=== PATIENT | female | born 2000 | race Two or more races ===

== ENCOUNTER 2024-08-20 05:03 | Observation (INO) | payer BC, OTHER ==
[~2024-08-20] VITALS: Ht 162.6 cm; Wt 91.2 kg
[2024-08-20] MEDS ORDERED: LACTATED RINGER'S 1,000 ML IV ONE (06:00)
[2024-08-20] MEDS ORDERED: LACTATED RINGER'S 1,000 ML IV SCH (06:00)
[2024-08-20] MEDS: TERBUTALINE SULFATE 1 MG/ML 1ML VIAL SC SCH (06:18)
--- NOTE | 2024-08-20 06:46 | DVHDS2 ---
Physician Discharge Progress N Final Diagnosis: IUP at 35w 3d GDMA1 Contraction - Resolved Other Interventions Other Interventions S: 23yo G1,0000 with EDC of 09/21/2024, OMAR 35w 3d presents to the Place with report of possible vaginal bleeding - had pink vaginal discharge earlier this morning at about 4:00am. Now only notices it on tissue paper when she cleans her genital. She reports normal movements, no leakage of fluids, KUHN, vision changes or epigastric pain. No urinary symptoms. Irregular cramps that started 11am on yesterday; only 1-2/hour Receiving care at [facility] complicated by GDMA1 PMH is unremarkable. Reports no past surgery. She reports no toxic habit or IPV. She reports her siblings had late deliveries 34-36 weeks ROS: Neurological: Unremarkable except as noted in Presenting problem/ CC above Respiratory: reports no respiratory symptom, no SOB Cardiovascular: no palpitation, chest pain or easy fatigue : No urinary symptom O: PE: A&O x3, NAD, well groomed. pleasant. Appropriate and normal mood and affect Afebrile, VSS Respiration unlabored Heart and lungs sounds: normal Abdomen: Gravid, non-tender to palpation. Fundal Ht 36cm. Cephalic presentation Extremities: No edema POC blood Glucose:96mg/dL VE: close/40%/-2/posterior cervix, medium in consistency UA: Neg for nitrites and leukocyte, 1+ proteinuria EFM: FHR baseline 130bpm with moderate variability and accelerations, no deceleration Contractions every 3-5mins x 100-120secs A: IUP at 35w 3d Category I FHR tracing Contractions P: IV hydration Tocolysis with Terbutaline Celestone GBS culture obtained Re-Assessment: 07:36am FHR baseline 140bpm with moderate variability and accelerations, no deceleration No Contraction A: IUP at 35w 3d GDMA1 Category I FHR Tracing Contraction; same resolved P Discharge home Keep appointment with OB provider as scheduled on 08/22/24 Return for 2nd dose of Celestone in 12-24 hours Educated on need for adequate hydration - advised to increased water intake 3rd trimester emergency S&S FMC, , & pre-eclampsia precautions reviewed with pt; advised to seek health care if any Condition on Discharge: Stable Disposition: Home Discharge Instructions: Diet: Regular Activity: No Restrictions, As Tolerated Activity comment: Balance activities with rest periods Medications: None Follow Up Care: Discharge Statement: "Patient was advised to return to the ER or call 911 if any headaches, dizziness, shortness of breath, chest pain, abdominal pain, bleeding, fevers, or worsening of medical condition. Patient was counseled about treatment plan, medications, possible side effects, patientverbalized understanding. All questions were answered to the best of my ability. This discharge took greater then 30 minutes in planning, reviewing documentation, counseling the patient, and discussing with other team members." ANA MARIA MURILLO Lexi Aug 20, 2024 06:46
[2024-08-20] MEDS: BETAMETHASONE ACET (30mg/5ml) 5ml Vial 6mg/ml IM ONE (06:57)
== END 2024-08-20 08:05 | disposition home or self-care (01) ==
LOC: LDRP 05:03
PROVIDERS: ADMIT Obstetrics & Gynecology; ATTEND Obstetrics & Gynecology
DX: O24.419 Gestational diabetes mellitus in pregnancy, unspecified control (principal); O26.893 Other specified pregnancy related conditions, third trimester; N89.8 Other specified noninflammatory disorders of vagina; Z3A.35 35 weeks gestation of pregnancy; Z79.899 Other long term (current) drug therapy
CPT/HCPCS: 59025; 81002; 87070; 96360; 96361; 96372; G0378; J0702; J3105; 82962

== ENCOUNTER 2024-08-21 06:45 | Observation (INO) | payer BC ==
[2024-08-21] MEDS: BETAMETHASONE ACET (30mg/5ml) 5ml Vial 6mg/ml IM ONE (07:19)
--- NOTE | 2024-08-21 07:40 | DVHDS2 ---
Physician Discharge Progress N Final Diagnosis: IUP 35 wk, Threatened labor Operations or Procedures: Operations or Procedures NST 2nd Celestone injection Condition on Discharge: Stable Disposition: Home Discharge Instructions: Diet: Regular Activity: Light activity Follow Up/Referral: Pelvic rest until delivered Medications: N/A Follow Up Care: Discharge Statement: "Patient was advised to return to the ER or call 911 if any headaches, dizziness, shortness of breath, chest pain, abdominal pain, bleeding, fevers, or worsening of medical condition. Patient was counseled about treatment plan, medications, possible side effects, patientverbalized understanding. All questions were answered to the best of my ability. This discharge took greater then 30 minutes in planning, reviewing documentation, counseling the patient, and discussing with other team members." ALEX FRANCO DO Aug 21, 2024 07:40
== END 2024-08-21 08:02 | disposition home or self-care (01) ==
LOC: LDRP 06:52
PROVIDERS: ADMIT Obstetrics & Gynecology; ATTEND Obstetrics & Gynecology
DX: O47.03 False labor before 37 completed weeks of gestation, third trimester (principal); O24.419 Gestational diabetes mellitus in pregnancy, unspecified control; O26.893 Other specified pregnancy related conditions, third trimester; N89.8 Other specified noninflammatory disorders of vagina; Z79.899 Other long term (current) drug therapy; Z98.890 Other specified postprocedural states; Z3A.35 35 weeks gestation of pregnancy
CPT/HCPCS: 59025; 81002; 94760; 96372; G0378; 82962

== ENCOUNTER → 2024-08-23 | Outpatient (CLI) | payer BC ==
[~2024-08-23] MED LIST: PREN-96 PO
[2024-08-23 09:19] LABS: Basophils # (auto) 0 10 ^3/uL (0-0.2); Basophils % (auto) 0.2 % (0.0-2.0); Eosinophils # (auto) 0.1 10 ^3/uL (0-0.8); Eosinophils % (auto) 1.5 % (0.0-7.0); Hematocrit 36.5 % (36.0-46.0); Hemoglobin 12.1 g/dL (12.2-16.2); Lymphocytes # (auto) 2.1 10 ^3/uL (0.4-5.4); Lymphocytes % (auto) 23.3 % (10.0-50.0); Mean Corpuscular Hemoglobin 28.1 pg (28.0-32.0); Mean Corpuscular Hgb Conc. 33.2 g/dL (32.0-36.0); Mean Corpuscular Volume 84.5 fL (80.0-100.0); Monocytes # (auto) 0.7 10 ^3/uL (0-1.3); Monocytes % (auto) 7.7 % (0.0-12.0); Neutrophils # (auto) 6.2 10 ^3/uL (1.6-8.6); Neutrophils % (auto) 67.3 % (37.0-80.0); Platelet Count (auto) 263 10^3/uL (140-450); Red Blood Cells 4.32 10^6/uL (4.0-5.20); Red Cell Distribution Width 13.5 % (11.8-14.3); White Blood Cell 9.2 10^3/uL (4.4-10.8)
[2024-08-24 05:07] LABS: RPR Non Reactive (Non Reactive)
[2024-08-24 21:06] LABS: Chlamydia Trachomatis, NAA Negative (Negative); Neisseria gonorrhoeae, NAA Negative (Negative)
== END | disposition home or self-care (01) ==
LOC: LAB 08:45
PROVIDERS: ATTEND Obstetrics & Gynecology
DX: Z34.80 Encounter for supervision of other normal pregnancy, unspecified trimester (principal)
CPT/HCPCS: 36415; 85025; 86592

== ENCOUNTER 2024-08-26 12:00 | Observation (INO) | payer BC ==
[2024-08-26] MEDS ORDERED: PREN-96 PO (12:34)
--- NOTE | 2024-08-26 12:36 | DVHDS2 ---
Physician Discharge Progress N Final Diagnosis: IUP 36 wk, GDMA1 Threatened labor Secondary Diagnosis: Encounter for surveillance Operations or Procedures: Operations or Procedures NST/BPP/AUSTIN all WNL Condition on Discharge: Stable Disposition: Home Discharge Instructions: Diet: Regular Activity: No Restrictions, As Tolerated Follow Up/Referral: As scheduled Medications: No new meds Follow Up Care: Discharge Statement: "Patient was advised to return to the ER or call 911 if any headaches, dizziness, shortness of breath, chest pain, abdominal pain, bleeding, fevers, or worsening of medical condition. Patient was counseled about treatment plan, medications, possible side effects, patientverbalized understanding. All questions were answered to the best of my ability. This discharge took greater then 30 minutes in planning, reviewing docu mentation, counseling the patient, and discussing with other team members." ALEX FRANCO DO Aug 26, 2024 12:36
--- NOTE | 2024-08-26 12:57 | DVH ---
Procedure: US BIOPHYSICAL PROFILE 08/26/2024 12:25 PM Indication: GDM Comparison: None Technique: Sonogram of gravid uterus utilizing grayscale and color techniques. FINDINGS: Single living intrauterine gestation. Presentation: Cephalic Placenta: Anterior heart rate: 142 bpm AUSTIN: 8.1 cm, DVP: 2.8 cm Maternal cervix: Not visualized Biophysical Profile: breathing score: 2 movement score: 2 tone: 2 Quantitative [place] score: 2 Total score: 8/8 IMPRESSION: 1. Single living as above. 2. Biophysical profile score: 8/8.
== END 2024-08-26 13:14 | disposition home or self-care (01) ==
LOC: LDRP 12:00
PROVIDERS: ADMIT Obstetrics & Gynecology; ATTEND Obstetrics & Gynecology
DX: O47.03 False labor before 37 completed weeks of gestation, third trimester (principal); O24.410 Gestational diabetes mellitus in pregnancy, diet controlled; Z3A.36 36 weeks gestation of pregnancy; Z79.899 Other long term (current) drug therapy; Z98.890 Other specified postprocedural states
CPT/HCPCS: 59025; 76818; 81002; 82962; 94760; G0378

== ENCOUNTER 2024-09-02 11:03 | Observation (INO) | payer BC ==
--- NOTE | 2024-09-02 12:15 | DVH ---
Procedure: US BIOPHYSICAL PROFILE 09/02/2024 11:16 AM Indication: GDMA1 Comparison: US BIOPHYSICAL PROFILE on DOS: 08/26/24 Technique: Sonogram of gravid uterus utilizing grayscale and color techniques. FINDINGS: Single living intrauterine gestation. Presentation: Cephalic Placenta: Anterior heart rate: 148 bpm AUSTIN: 8.9 cm, DVP: 2.5 cm Maternal cervix: Not visualized Biophysical Profile: breathing score: 2 movement score: 2 tone: 2 Quantitative [place] score: 2 Total score: 8/8 IMPRESSION: 1. Single living as above. 2. Biophysical profile score: 8/8.
--- NOTE | 2024-09-02 18:37 | DVHDS2 ---
Physician Discharge Progress N Final Diagnosis: GDM Operations or Procedures: Operations or Procedures NST,SONO Condition on Discharge: Good Disposition: Home Discharge Instructions: Diet: Consistent carbohydrate Activity: No Restrictions, As Tolerated Follow Up/Referral: Return to birthplace at 11:00 for NST/BPP Medications: NA Follow Up Care: Specialist: 3D Discharge Statement: "Patient was advised to return to the ER or call 911 if any headaches, dizziness, shortness of breath, chest pain, abdominal pain, bleeding, fevers, or worsening of medical condition. Patient was counseled about treatment plan, medications, possible side effects, patientverbalized understanding. All questions were answered to the best of my ability. This discharge took greater then 30 minutes in planning, reviewing documentation, counseling the patient, and discussing with other team members." NANO CORONA DO Sep 02, 2024 18:36
== END 2024-09-02 12:24 | disposition home or self-care (01) ==
LOC: LDRP 11:03
PROVIDERS: ADMIT Obstetrics & Gynecology; ATTEND Obstetrics & Gynecology
DX: O24.419 Gestational diabetes mellitus in pregnancy, unspecified control (principal); Z98.890 Other specified postprocedural states; Z79.899 Other long term (current) drug therapy; Z3A.37 37 weeks gestation of pregnancy
CPT/HCPCS: 59025; 76818; 81002; 82948; 82962; 94760; G0378

== ENCOUNTER 2024-09-06 10:55 | Observation (INO) | payer BC ==
--- NOTE | 2024-09-06 11:34 | DVH ---
BIOPHYSICAL PROFILE HISTORY: GDMA1 Comparison Study: 09/02/2024 TECHNIQUE: Multiple real-time grayscale sonographic images through the gravid uterus of the fetus wi th duplex Doppler color flow and M-mode spectral analysis FINDINGS: BIOPHYSICAL PROFILE: breathing score: 2 movement score: 2 tone score: 2 Quantitative AUSTIN score: 2 (AUSTIN: 13.9 Cm.) Total score: 8 The cervix is not visualized Single live fetus in cephalic presentation. heart rate 139 beats per minute. Anterior placenta without previa or abruption IMPRESSION: Biophysical profile score: 8
--- NOTE | 2024-09-06 12:16 | DVHDS2 ---
Physician Discharge Progress N Final Diagnosis: gdm Operations or Procedures: Operations or Procedures nst,,sono Condition on Discharge: Good Disposition: Home Discharge Instructions: Diet: Consistent carbohydrate Activity: No Restrictions, As Tolerated Medications: na Follow Up Care: Specialist: 4d Discharge Statement: "Patient was advised to return to the ER or call 911 if any headaches, dizziness, shortness of breath, chest pain, abdominal pain, bleeding, fevers, or worsening of medical condition. Patient was counseled about treatment plan, medications, possible side effects, patientverbalized understanding. All questions were answered to the best of my ability. This discharge took greater then 30 minutes in planning, reviewing documentation, counseling the patient, and discussing with other team members." NANO CORONA DO Sep 06, 2024 12:16
== END 2024-09-06 12:05 | disposition home or self-care (01) ==
LOC: LDRP 10:55
PROVIDERS: ADMIT Obstetrics & Gynecology; ATTEND Obstetrics & Gynecology
DX: O24.419 Gestational diabetes mellitus in pregnancy, unspecified control (principal); Z98.890 Other specified postprocedural states; Z79.899 Other long term (current) drug therapy; Z3A.37 37 weeks gestation of pregnancy
CPT/HCPCS: 59025; 76818; 81002; 82948; 82962; 94760; G0378

== ENCOUNTER 2024-09-13 10:06 | Observation (INO) | payer BC ==
--- NOTE | 2024-09-13 13:14 | DVH ---
Procedure: US BIOPHYSICAL PROFILE 09/13/2024 10:41 AM Indication: GDMA1 Comparison: US BIOPHYSICAL PROFILE on DOS: 09/06/24, US BIOPHYSICAL PROFILE on DOS: 09/02/24, US BIOPHY SICAL PROFILE on DOS: 08/26/24 Technique: Sonogram of gravid uterus utilizing grayscale and color techniques. FINDINGS: Single living intrauterine gestation. Presentation: Cephalic Placenta: Anterior, grade 2 heart rate: 129 bpm [place]UST[place]: 15.2 cm, DVP: 4.8 cm Maternal cervix: Not visualized Other: The umbilical cord is draped over the neck. Biophysical Profile: breathing score: 2 movement score: 2 tone: 2 Quantitative [place] score: 2 Total score: 8/8 IMPRESSION: 1. Single living as above. 2. Biophysical profile score: 8/8. 3. Nuchal cord.
--- NOTE | 2024-09-13 15:41 | DVHDS2 ---
Physician Discharge Progress N Final Diagnosis: gdm Operations or Procedures: Operations or Procedures nst,sono Condition on Discharge: Good Disposition: Home Discharge Instructions: Diet: Regular Activity: No Restrictions, As Tolerated Follow Up/Referral: RETURN TO BIRTHPLACE ON TUESDAY 09/19 AT 7:00 AM FOR INDUCTION OF LABOR Medications: na Follow Up Care: Specialist: shima sanches Discharge Statement: "Patient was advised to return to the ER or call 911 if any headaches, dizziness , shortness of breath, chest pain, abdominal pain, bleeding, fevers, or worsening of medical condition. Patient was counseled about treatment plan, medications, possible side effects, patientverbalized understanding. All questions were answered to the best of my ability. This discharge took greater then 30 minutes in planning, reviewing documentation, counseling the patient, and discussing with other team members." NANO CORONA DO Sep 13, 2024 15:41
== END 2024-09-13 12:17 | disposition home or self-care (01) ==
LOC: UNDOADMOB 10:06 → LDRP 10:06 → UNDODISOB 12:17
PROVIDERS: ADMIT Obstetrics & Gynecology; ATTEND Obstetrics & Gynecology
DX: O24.419 Gestational diabetes mellitus in pregnancy, unspecified control (principal); O26.893 Other specified pregnancy related conditions, third trimester; R10.2 Pelvic and perineal pain; Z3A.38 38 weeks gestation of pregnancy; Z79.899 Other long term (current) drug therapy
CPT/HCPCS: 59025; 76818; 81002; 82948; 82962; G0378

== ENCOUNTER 2024-09-19 06:44 | Inpatient (IN) | payer BC ==
[~2024-09-19] VITALS: Ht 162.6 cm; Wt 91.6 kg
[2024-09-19] MEDS ORDERED: BUTORPHANOL TARTRATE 2 MG/1 ML VIAL IV PRN ×2 (08:00)
[2024-09-19] MEDS ORDERED: LIDOCAINE 2%HCL (LOCAL ANESTH.) INJ 20ML MDV IJ PRN (08:00)
[2024-09-19 08:40] LABS: Basophils # (auto) 0.1 10 ^3/uL (0-0.2); Basophils % (auto) 0.7 % (0.0-2.0); Eosinophils # (auto) 0.1 10 ^3/uL (0-0.8); Eosinophils % (auto) 1.5 % (0.0-7.0); Hematocrit 38.8 % (36.0-46.0); Hemoglobin 13.2 g/dL (12.2-16.2); Lymphocytes % (auto) 23.9 % (10.0-50.0); Mean Corpuscular Hemoglobin 28.1 pg (28.0-32.0); Mean Corpuscular Hgb Conc. 33.9 g/dL (32.0-36.0); Mean Corpuscular Volume 82.8 fL (80.0-100.0); Monocytes # (auto) 0.4 10 ^3/uL (0-1.3); Monocytes % (auto) 4.8 % (0.0-12.0); Neutrophils # (auto) 5.9 10 ^3/uL (1.6-8.6); Neutrophils % (auto) 69.1 % (37.0-80.0); Nucleated Red Blood Cells % 0.1 %; Platelet Count (auto) 256 10^3/uL (140-450); Red Blood Cells 4.69 10^6/uL (4.0-5.20); Red Cell Distribution Width 14.5 % (11.8-14.3); White Blood Cell 8.5 10^3/uL (4.4-10.8)
[2024-09-19 08:52] LABS: INR 0.93 (0.9-1.15); Partial Thromboplastin Time 25.8 SEC (24.5-34.5); Prothrombin Time 9.9 sec (9.3-11.8)
[2024-09-19 08:53] LABS: Urine Bacteria FEW /hpf (None Seen); Urine Blood Negative /uL (Negative); Urine Clarity Clear (Clear); Urine Color Light-Yellow (Yellow); Urine Protein, UAD Negative (Negative); Urine Squamous Epithelial Cell FEW /hpf (<5); Urine Urobilinogen Normal (Negative); Urine WBC 1 /HPF (0-5); Urine pH 6.5 (5.0-9.0)
[2024-09-19 09:18] LABS: Alanine Aminotransferase 15 U/L (7-40); Albumin 3.7 g/dL (3.2-4.8); Anion Gap 12 (5-15); Aspartate Aminotransferase 25 U/L (13-40); BUN/Creatinine Ratio 17.3 (10.0-20.0); Bilirubin, Total 0.3 mg/dL (0.2-1.0); Blood Urea Nitrogen 9 mg/dL (9-23); Calcium 9.6 mg/dL (8.7-10.4); Chloride 107 mmol/L (98-107); Potassium 3.9 mmol/L (3.5-5.1); Sodium 137 mmol/L (136-145); Total Protein 6.2 g/dL (5.7-8.2)
[2024-09-19 09:20] LABS: Alkaline Phosphatase 158 U/L (46-116); Carbon Dioxide 18 mmol/L (20-31); Glucose 111 mg/dL (74-106)
--- NOTE | 2024-09-19 09:42 | DVHHP2 ---
OB CC & HPI Date Date of Admission: Sep 19, 2024 Patient Identification: : 1 Para: 0 EDC: Sep 21, 2024 EGA: 39.5 Chief Complaints: Reason for admission: induction of labor Admission Nurse Assessment Rev: Yes History of Present Complaints 24yo IUP@39.5wks presents for scheduled IOL for GDM, A1. Having irregular UCs. Denies LOF/VB/KUHN/vision changes/RUQ pain. Endorses +FM. PNC: Routine PNC at [facility] OB with Dr. Henderson, adequate visits, PNC complicated by PTL (received 2 doses of betamethasone). GTT elevated, dating based on LMP c/w 8w5d sono, GBS negative. Past Medical History Cardiac: No pertinent Hx Pulmonary: No pertinent Hx Central Nervous System: No pertinent Hx GI: No pertinent Hx Hemotology/Oncology: No pertinent Hx Hepatobiliary: No pertinent Hx Psychiatric: No pertinent Hx Musculoskeletal: Other (scoliosis as a child, treated with back brace) Rheumotologic: No pertinent Hx Infectious Disease: No peritnent Hx ENT: No pertinent Hx Renal/: No pertinent Hx Endocrine: No pertinent Hx Dermatology: No pertinent Hx Past Surgical History: No pertinent Hx OB History OB History Care: Good Care Ultrasounds: Normal mid trimester US Obstetrical Complications: Gestational Diabetes Medical Complications: None Allergies: Coded Allergies: NO KNOWN ALLERGIES (Unverified , 08/20/24) Home Meds Reported Medications Vit W/ Ferrous Fumara ( One Daily) Daily Tab, 1 TAB PO DAILY, #90 TAB 3 Refills 08/26/24 Current Medications Current Medications Medications (Trade) Dose Ordered Sig/Chana Route PRN Reason Start Time Stop Time Status Last Admin Lactated Ringer's 1,000 ml @ 125 mls/hr Q8H IV 09/19/24 08:00 Witch Abbie (Tucks) 1 pad PRN PRN TOP PERINEAL AREA DISCOMFORT 09/19/24 08:00 Sodium Lauryl Sulfate (Phisoderm) 240 ml PRN PRN TOP PERINEAL AREA DISCOMFORT 09/19/24 08:00 Benzocaine (Dermoplast) 1 applic PRN PRN TOP PERINEAL AREA DISCOMFORT 09/19/24 08:00 Butorphanol Tartrate (Stadol Injection) 1 mg Q4HPRN PRN IV MODERATE PAIN (4-6 PAIN SCALE) 09/19/24 08:00 Butorphanol Tartrate (Stadol Injection) 2 mg Q4HPRN PRN IV SEVERE PAIN (7-10 PAIN SCALE) 09/19/24 08:00 Misoprostol (Cytotec) 50 mcg Q4HPRN PRN PO CERVICAL RIPENING 09/19/24 08:00 Lidocaine HCl (Xylocaine) 20 ml ONCE PRN IJ PERINEAL AREA DISCOMFORT 09/19/24 08:00 Misoprostol (Cytotec) 50 mcg Q4HPRN PRN PO CERVICAL RIPENING 09/19/24 09:45 UNV Family & Social History Family/Social History Past Family/Social History: FMH: maternal side has T2DM SOC: denies Blood Type: O+ Rubella: immune RPR/VDRL: Negative GBS Status: Negative HBsAG: Negative Review of Systems Constitutional: No symptom reported Ears, Nose, & Throat: No symptom reported Eyes: No symptom reported Pulmonary/Respiratory: No symptom reported Cardiovascular: No symptom reported Gastrointestinal: No symptom reported Genitourinary: No symptom reported Musculoskeletal: No symptom reported Skin: No symptom reported Psychiatric: No symptom reported Endocrine: No symptom reported Hemotologic/Lymphatic: No symptom reported OB Admission Exam Physical Exam Vitals: VSS, see chart HEENT: TMs Normal, Fontanelles Normal, Nasal Mucosa Normal, Eyes non-injected, Oropharynx Normal, PERRLA, Moist Membranes, EOMI Heart: Rhythm Normal Lungs: Clear Abdomen: Gravid Extremities: Normal Reflexes: Normal Cervical Dilatation: 1cm (by RN) Effacement: 50% Station: -2 Membranes: Intact Heart Rate: 140's Accelerations: Accelerations Present Decelerations: No Decelerations Fdc Variability: Average (6-25) Contractions on Admission: 6-10 Minutes Apart Frequency of Contractions: 3-5 min Duration: 90-120 Intensity: Mild OB Plan Plan Admitting Diagnosis: 24yo IUP@39.5wks Induction of Labor for GDM, A1 Category I EFM Intact Membranes GBS negative Plan: Induction Induction Methd: Misoprostol protocol Other Plan: Admit to L&D Informed consent obtained Discussed risks, benefits, alternatives of IOL. Pt consents to IOL with PO cytotec. monitoring per order Routine labs ordered OB complete sono ordered Pain mgmt PRN Frequent position changes in and out of bed encouraged Limit SVE unless necessary Intrauterine resuscitation PRN Anticipate CNM will consult with JENI Pierce STUDENTMDW Sep 19, 2024 09:42
[2024-09-19] MEDS ORDERED: miSOPROStol 50 MCG per PRE-CUT 1/2 TAB PO PRN (09:45)
[2024-09-19] MEDS: miSOPROStol 50 MCG per PRE-CUT 1/2 TAB PO PRN (09:59)
--- NOTE | 2024-09-19 10:13 | DVH ---
LIMITED OB ULTRASOUND > 14 WKS: HISTORY: gdma1 efw TECHNIQUE: Multiple real-time grayscale images of the gravid uterus with duplex Doppler color flow an d M-mode spectral analysis. TRANSDUCER: TA FINDINGS: IUP single live fetus at 39 weeks based on composite averages of the BPD, head circumference, abdomi nal circumference and femur length Estimated weight 3600 grams heart rate 141 beats per minute AUST[place] 6 cm Cervix was not seen cephalic Presentation Grade II anterior Placenta without previa or abruption. IMPRESSION: IUP single live fetus at 39 weeks AUA corresponding to an YURY of 09/26/24 Possible nuchal cord.
[2024-09-19 10:41] LABS: Amphetamine Screen, Urine Neg (NEGATIVE); Barbiturate Scree,Urine Neg (NEGATIVE); Benzodiazephine Screen, Urine Neg (NEGATIVE); Cannabinoid Screen, Urine Neg (NEGATIVE); Cocaine Screen, Urine Neg (NEGATIVE); Opiate Scree,Urine Neg (NEGATIVE); Phencyclidine Screen, Urine Neg (NEGATIVE)
[2024-09-19] MEDS: LACTATED RINGER'S 1,000 ML IV SCH (16:11)
--- NOTE | 2024-09-19 19:53 | DVHPN2 ---
CNM Labor Progress Note Date and Time Seen Date Seen: Sep 19, 2024 Time Seen: 19:00 Subjective Patient reports: No new complaints Subjective Comment Pt resting comfortably in bed Objective Vital Signs VSS, see chart Monitoring Method Monitoring Method: External Heart Rate Heart Rate Baseline: 130 Heart Rate Variability: Moderate Presence of FHR Accelerations: Yes Presence of FHR Decelerations: No Are all 5 Components of the FH: Yes Contractions Contractions Frequency: Other (q 2-6 min ) Duration of Contraction: 100 Contractions Intensity: Mild Contractions Resting Tone: Relaxed Membranes Membranes: Intact Vaginal Exam Vag Exam Deferred: No (schwartz balloon placed as CRB with 60ml NS) Vaginal Exam Dilation: 1 Vaginal Exam Effacement: 70 Vaginal Exam Station: -2 Vaginal Exam Presentation: VTX Vaginal Exam Show: None Medications Medications - Pitocin: No Medication - Epidural: No Lab Results Lab Results Current Medications Medications (Trade) Dose Ordered Sig/Chana Start Time Stop Time Status Last Admin Dose Admin Lactated Ringer's 1,000 ml @ 125 mls/hr Q8H 09/19/24 08:00 09/19/24 16:11 125 MLS/HR Witch Abbie (Tucks) 1 pad PRN PRN 09/19/24 08:00 Sodium Lauryl Sulfate (Phisoderm) 240 ml PRN PRN 09/19/24 08:00 Benzocaine (Dermoplast) 1 applic PRN PRN 09/19/24 08:00 Butorphanol Tartrate (Stadol Injection) 1 mg Q4HPRN PRN 09/19/24 08:00 Butorphanol Tartrate (Stadol Injection) 2 mg Q4HPRN PRN 09/19/24 08:00 Misoprostol (Cytotec) 50 mcg Q4HPRN PRN 09/19/24 08:00 09/19/24 14:21 50 MCG Lidocaine HCl (Xylocaine) 20 ml ONCE PRN 09/19/24 08:00 Oxytocin 500 ml @ 999 mls/hr Q31M ONCE 09/19/24 08:00 09/19/24 08:30 DC Oxytocin 500 ml @ 125 mls/hr Q4H ONCE 09/19/24 08:30 09/19/24 12:29 DC Misoprostol (Cytotec) 50 mcg Q4HPRN PRN 09/19/24 09:45 Laboratory Tests Test 09/19/24 16:06 09/19/24 08:18 09/19/24 07:40 Range/Units POC Glucose 78 70-106 mg/dl White Blood Count 8.5 4.4-10.8 10^3/uL Red Blood Count 4.69 4.0-5.20 10^6/uL Hemoglobin 13.2 12.2-16.2 g/dL Hematocrit 38.8 36.0-46.0 % Mean Corpuscular Volume 82.8 80.0-100.0 fL Mean Corpuscular Hemoglobin 28.1 28.0-32.0 pg Mean Corpuscular Hemoglobin Concent 33.9 32.0-36.0 g/dL Red Cell Distribution Width 14.5 H 11.8-14.3 % Platelet Count 256 140-450 10^3/uL Mean Platelet Volume 8.2 6.9-10.8 fL Neutrophils (%) (Auto) 69.1 37.0-80.0 % Lymphocytes (%) (Auto) 23.9 10.0-50.0 % Monocytes (%) (Auto) 4.8 0.0-12.0 % Eosinophils (%) (Auto) 1.5 0.0-7.0 % Basophils (%) (Auto) 0.7 0.0-2.0 % Neutrophils # (Auto) 5.9 1.6-8.6 10 ^3/uL Lymphocytes # (Auto) 2.0 0.4-5.4 10 ^3/uL Monocytes # (Auto) 0.4 0-1.3 10 ^3/uL Eosinophils # (Auto) 0.1 0-0.8 10 ^3/uL Basophils # (Auto) 0.1 0-0.2 10 ^3/uL Nucleated Red Blood Cells 0.1 % Prothrombin Time 9.9 9.3-11.8 sec Prothrombin Time INR 0.93 0.9-1.15 Activated Partial Thromboplast Time 25.8 24.5-34.5 SEC Sodium Level 137 136-145 mmol/L Potassium Level 3.9 3.5-5.1 mmol/L Chloride Level 107 98-107 mmol/L Carbon Dioxide Level 18 L 20-31 mmol/L Anion Gap 12 5-15 Blood Urea Nitrogen 9 9-23 mg/dL Creatinine 0.52 L 0.550-1.02 mg/dL Glomerular Filtration Rate Calc 133 >90 mL/min BUN/Creatinine Ratio 17.3 10.0-20.0 Serum Glucose 111 H 74-106 mg/dL Calcium Level 9.6 8.7-10.4 mg/dL Total Bilirubin 0.3 0.2-1.0 mg/dL Aspartate Amino Transferase (AST) 25 13-40 U/L Alanine Aminotransferase (ALT) 15 7-40 U/L Alkaline Phosphatase 158 H 46-116 U/L Total Protein 6.2 5.7-8.2 g/dL Albumin 3.7 3.2-4.8 g/dL Rapid Plasma Reagin Pending Treponema pallidum Ab (TP-PA) Pending Hepatitis C Antibody Negative Negative Urine Color Light-yellow Yellow Urine Clarity Clear Clear Urine pH 6.5 5.0-9.0 Urine Specific [place] 1.010 1.001-1.035 Urine Protein Negative Negative Urine Ketones Negative Negative Urine Blood Negative Negative /uL Urine Nitrite Negative Negative Urine Bilirubin Negative Negative Urine Urobilinogen Normal Negative mg/dL Urine Leukocyte Esterase 1+ Negative /uL Urine RBC 1 0 - 4 /hpf Urine Microscopic WBC 1 0-5 /HPF Urine Squamous Epithelial Cells Few <5 /hpf Urine Bacteria Few H None Seen /hpf Urine Glucose Normal Normal mg/dL Urine Opiates Screen Neg NEGATIVE Urine Fentanyl Screen Neg NEGATIVE Urine Barbiturates Screen Neg NEGATIVE Urine Phencyclidine Screen Neg NEGATIVE Urine Amphetamines Screen Neg NEGATIVE Urine Benzodiazepines Screen Neg NEGATIVE Urine Cocaine Screen Neg NEGATIVE Urine Cannabinoids Screen Neg NEGATIVE Assessment Assessment 24yo IUP@39.5wks Induction of Labor for GDM, A1 Category I EFM Intact Membranes GBS negative Plan Plan RN to apply traction to Schwartz balloon q1hr Discussed starting IV pitocin with pt. Pt agrees with POC. Continuous monitoring Pain mgmt PRN Frequent position changes in and out of bed encouraged Limit SVE unless necessary Intrauterine resuscitation PRN Anticipate Plan discussed with: Patient, Other (partner) JENI PHILLIPS STUDENTMDW Sep 19, 2024 19:53
[2024-09-19] MEDS ORDERED: TERBUTALINE SULFATE 1 MG/ML 1ML VIAL SC PRN (20:15)
[2024-09-19] MEDS: PHISODERM TOP SOLN 240ML BTL TOP PRN (21:24)
[2024-09-19] MEDS: DERMOPLAST 60ML BOTTLE TOP PRN (21:24)
[2024-09-19] MEDS: WITCH HAZEL-GLYCERIN PAD TOP PRN (21:24)
[2024-09-19] MEDS: LACT. RINGERS/OXYTOCIN 20UNITS 1,000 ML IV SCH (21:30)
[2024-09-20 06:06] LABS: RPR Non Reactive (Non Reactive)
[2024-09-20] MEDS ORDERED: ROPIVACAINE HCL 0 ML ONE (07:21)
--- NOTE | 2024-09-20 07:41 | DVHPN2 ---
Chief Complaints Patient reports: No new complaints Nursing reports: No new complaints Objective Medications Current Medications Medications (Trade) Dose Ordered Sig/Chana Route PRN Reason Start Time Stop Time Status Last Admin Benzocaine (Dermoplast) 1 applic PRN PRN TOP PERINEAL AREA DISCOMFORT 09/19/24 08:00 09/19/24 21:24 Butorphanol Tartrate (Stadol Injection) 1 mg Q4HPRN PRN IV MODERATE PAIN (4-6 PAIN SCALE) 09/19/24 08:00 Butorphanol Tartrate (Stadol Injection) 2 mg Q4HPRN PRN IV SEVERE PAIN (7-10 PAIN SCALE) 09/19/24 08:00 Lactated Ringer's 1,000 ml @ 125 mls/hr Q8H IV 09/19/24 08:00 09/20/24 05:20 Lidocaine HCl (Xylocaine) 20 ml ONCE PRN IJ PERINEAL AREA DISCOMFORT 09/19/24 08:00 Misoprostol (Cytotec) 50 mcg Q4HPRN PRN PO CERVICAL RIPENING 09/19/24 08:00 09/19/24 14:21 Misoprostol (Cytotec) 50 mcg Q4HPRN PRN PO CERVICAL RIPENING 09/19/24 09:45 Oxytocin 1,000 ml @ 6 ml/hr Q24H IV 09/19/24 20:15 09/19/24 21:30 Sodium Lauryl Sulfate (Phisoderm) 240 ml PRN PRN TOP PERINEAL AREA DISCOMFORT 09/19/24 08:00 09/19/24 21:24 Terbutaline Sulfate (Brethine Inj) 0.25 mg ONCE PRN SC Uterine tachysystole 09/19/24 20:15 Witch Abbie (Tucks) 1 pad PRN PRN TOP PERINEAL AREA DISCOMFORT 09/19/24 08:00 09/19/24 21:24 Others ve-5cm/80/-2 Studies Laboratory Tests 09/19/24 08:18 Test 09/19/24 08:18 Range/Units Serum Glucose 111 H 74-106 mg/dL Ass/Plan Assessment iol for gdm Plan awiting epidural start pitocin after epidural Visit Coding OBGYN Date of Service: Sep 20, 2024 Billing Provider: NANO CORONA DO TAXONOMY TEACHER Common Visit Codes: [id number] INP/OBS CARE(LOW) NANO CORONA DO Sep 20, 2024 07:41
[2024-09-20] MEDS ORDERED: NALBUPHINE HCL 10 MG/1ml INJECTION IV PRN (11:15)
[2024-09-20] MEDS ORDERED: ROPIVACAINE HCL 200 ML ONE (11:42)
[2024-09-20] MEDS ORDERED: LIDOCAINE 1% (LOCAL ANESTH.) PF 5ml SDV ONE (11:46)
--- NOTE | 2024-09-20 12:03 | DVHPN2 ---
Chief Complaints Patient reports: No new complaints Nursing reports: No new complaints Objective Medications Current Medications Medications (Trade) Dose Ordered Sig/Chana Route PRN Reason Start Time Stop Time Status Last Admin Nalbuphine HCl (Nubain) 10 mg Q4HP PRN IV SEVERE PAIN (7-10 PAIN SCALE) 09/20/24 11:15 UNV Ondansetron HCl (Zofran) 4 mg Q4HPRN PRN IV NAUSEA / VOMITING 09/20/24 11:15 UNV Oxytocin 1,000 ml @ 6 ml/hr Q24H IV 09/19/24 20:15 09/20/24 08:06 Terbutaline Sulfate (Brethine Inj) 0.25 mg ONCE PRN SC Uterine tachysystole 09/19/24 20:15 Others ve- ve-6cm/80/-1 Studies Laboratory Tests 09/19/24 08:18 Test 09/19/24 08:18 Range/Units Serum Glucose 111 H 74-106 mg/dL Ass/Plan Assessment iol for gdm Plan declined epidural cont with pitocin Visit Coding OBGYN Date of Service: Sep 20, 2024 Billing Provider: NANO CORONA DO STORE SALES MANAGER Common Visit Codes: [id number] OBS CARE (MOD), [id number] OBS CARE (HIGH) NANO CORONA DO Sep 20, 2024 12:03
[2024-09-20] MEDS ORDERED: SODIUM CHLORIDE 0.9% 300 ML IUPC ONE (15:30)
[2024-09-20] MEDS ORDERED: SODIUM CHLORIDE 0.9% 1,000 ML IUPC SCH (15:30)
--- NOTE | 2024-09-20 16:33 | DVHPN2 ---
CNM Labor Progress Note Date and Time Seen Date Seen: Sep 20, 2024 Time Seen: 15:15 Subjective Subjective Comment Patient denies feeling UCs Objective Vital Signs VSS: see chart Monitoring Method Monitoring Method: External Heart Rate Heart Rate Baseline: 150 Heart Rate Variability: Moderate Presence of FHR Accelerations: No Presence of FHR Decelerations: Yes Heart Rate Type of Decel: Variable Decelerations Are all 5 Components of the FH: Yes Contractions Contractions Frequency: Other (2-4 minutes) Duration of Contraction: 70 Contractions Intensity: Moderate Contractions Resting Tone: Relaxed Membranes Membranes: Ruptured Amniotic Fluid Color: Clear Vaginal Exam Vag Exam Deferred: No (FSE/IUPC inserted; patient consented) Vaginal Exam Dilation: 6 Vaginal Exam Effacement: 90 Vaginal Exam Station: -2 Vaginal Exam Presentation: VTX Vaginal Exam Show: Small Medications Medications - Pitocin: Yes (5 mu) Medication - Epidural: Yes Medication - Other s/p 2 doses of PO cytotec Lab Results Lab Results Current Medications Medications (Trade) Dose Ordered Sig/Chana Start Time Stop Time Status Last Admin Dose Admin Lactated Ringer's 1,000 ml @ 125 mls/hr Q8H 09/19/24 08:00 09/20/24 05:20 125 MLS/HR Witch Abbie (Tucks) 1 pad PRN PRN 09/19/24 08:00 09/19/24 21:24 1 PAD Sodium Lauryl Sulfate (Phisoderm) 240 ml PRN PRN 09/19/24 08:00 09/19/24 21:24 240 ML Benzocaine (Dermoplast) 1 applic PRN PRN 09/19/24 08:00 09/19/24 21:24 1 APPLIC Butorphanol Tartrate (Stadol Injection) 1 mg Q4HPRN PRN 09/19/24 08:00 Butorphanol Tartrate (Stadol Injection) 2 mg Q4HPRN PRN 09/19/24 08:00 Misoprostol (Cytotec) 50 mcg Q4HPRN PRN 09/19/24 08:00 09/19/24 14:21 50 MCG Lidocaine HCl (Xylocaine) 20 ml ONCE PRN 09/19/24 08:00 Oxytocin 500 ml @ 999 mls/hr Q31M ONCE 09/19/24 08:00 09/19/24 08:30 DC Oxytocin 500 ml @ 125 mls/hr Q4H ONCE 09/19/24 08:30 09/19/24 12:29 DC Misoprostol (Cytotec) 50 mcg Q4HPRN PRN 09/19/24 09:45 Naloxone HCl (Narcan) 0.2 mg PRN ONCE 09/19/24 19:30 09/19/24 19:38 DC Ephedrine Sulfate (ePHEDrine SULFATE) 10 mg PRN ONCE 09/19/24 19:30 09/19/24 19:38 DC Fentanyl Citrate 100 mcg ONCE ONCE 09/19/24 19:30 09/19/24 19:38 DC Lidocaine HCl (Xylocaine-Pf 2% Injection) 1 ml ONCE ONCE 09/19/24 19:30 09/19/24 19:38 DC Lactated Ringer's 1,000 ml @ 1,000 mls/hr Q1H ONCE 09/19/24 19:30 09/19/24 20:29 DC Oxytocin 1,000 ml @ 6 ml/hr Q24H 09/19/24 20:15 09/20/24 08:06 6 ML/HR Terbutaline Sulfate (Brethine Inj) 0.25 mg ONCE PRN 09/19/24 20:15 Nalbuphine HCl (Nubain) 10 mg Q4HP PRN 09/20/24 11:15 Ondansetron HCl (Zofran) 4 mg Q4HPRN PRN 09/20/24 11:15 Sodium Chloride 300 ml @ 0 mls/hr Q0M ONCE 09/20/24 15:30 09/20/24 15:58 DC Sodium Chloride 1,000 ml @ 125 mls/hr Q8H 09/20/24 15:30 Laboratory Tests Test 09/20/24 12:53 09/19/24 08:18 09/19/24 07:40 Range/Units POC Glucose 91 70-106 mg/dl White Blood Count 8.5 4.4-10.8 10^3/uL Red Blood Count 4.69 4.0-5.20 10^6/uL Hemoglobin 13.2 12.2-16.2 g/dL Hematocrit 38.8 36.0-46.0 % Mean Corpuscular Volume 82.8 80.0-100.0 fL Mean Corpuscular Hemoglobin 28.1 28.0-32.0 pg Mean Corpuscular Hemoglobin Concent 33.9 32.0-36.0 g/dL Red Cell Distribution Width 14.5 H 11.8-14.3 % Platelet Count 256 140-450 10^3/uL Mean Platelet Volume 8.2 6.9-10.8 fL Neutrophils (%) (Auto) 69.1 37.0-80.0 % Lymphocytes (%) (Auto) 23.9 10.0-50.0 % Monocytes (%) (Auto) 4.8 0.0-12.0 % Eosinophils (%) (Auto) 1.5 0.0-7.0 % Basophils (%) (Auto) 0.7 0.0-2.0 % Neutrophils # (Auto) 5.9 1.6-8.6 10 ^3/uL Lymphocytes # (Auto) 2.0 0.4-5.4 10 ^3/uL Monocytes # (Auto) 0.4 0-1.3 10 ^3/uL Eosinophils # (Auto) 0.1 0-0.8 10 ^3/uL Basophils # (Auto) 0.1 0-0.2 10 ^3/uL Nucleated Red Blood Cells 0.1 % Prothrombin Time 9.9 9.3-11.8 sec Prothrombin Time INR 0.93 0.9-1.15 Activated Partial Thromboplast Time 25.8 24.5-34.5 SEC Sodium Level 137 136-145 mmol/L Potassium Level 3.9 3.5-5.1 mmol/L Chloride Level 107 98-107 mmol/L Carbon Dioxide Level 18 L 20-31 mmol/L Anion Gap 12 5-15 Blood Urea Nitrogen 9 9-23 mg/dL Creatinine 0.52 L 0.550-1.02 mg/dL Glomerular Filtration Rate Calc 133 >90 mL/min BUN/Creatinine Ratio 17.3 10.0-20.0 Serum Glucose 111 H 74-106 mg/dL Calcium Level 9.6 8.7-10.4 mg/dL Total Bilirubin 0.3 0.2-1.0 mg/dL Aspartate Amino Transferase (AST) 25 13-40 U/L Alanine Aminotransferase (ALT) 15 7-40 U/L Alkaline Phosphatase 158 H 46-116 U/L Total Protein 6.2 5.7-8.2 g/dL Albumin 3.7 3.2-4.8 g/dL Rapid Plasma Reagin Non reactive Non Reactive Treponema pallidum Ab (TP-PA) Pending Hepatitis C Antibody Negative Negative Urine Color Light-yellow Yellow Urine Clarity Clear Clear Urine pH 6.5 5.0-9.0 Urine Specific Dana 1.010 1.001-1.035 Urine Protein Negative Negative Urine Ketones Negative Negative Urine Blood Negative Negative /uL Urine Nitrite Negative Negative Urine Bilirubin Negative Negative Urine Urobilinogen Normal Negative mg/dL Urine Leukocyte Esterase 1+ Negative /uL Urine RBC 1 0 - 4 /hpf Urine Microscopic WBC 1 0-5 /HPF Urine Squamous Epithelial Cells Few <5 /hpf Urine Bacteria Few H None Seen /hpf Urine Glucose Normal Normal mg/dL Urine Opiates Screen Neg NEGATIVE Urine Fentanyl Screen Neg NEGATIVE Urine Barbiturates Screen Neg NEGATIVE Urine Phencyclidine Screen Neg NEGATIVE Urine Amphetamines Screen Neg NEGATIVE Urine Benzodiazepines Screen Neg NEGATIVE Urine Cocaine Screen Neg NEGATIVE Urine Cannabinoids Screen Neg NEGATIVE Microbiology Date/Time Source Procedure Growth Status 09/19/24 07:40 Voided Urine Urine Culture - Preliminary Resulted Assessment Assessment A: 24yo IUP@39.6wks Induction of Labor GDMA1 Category 2 EFM SROM; clear fluid GBS negative Plan Plan P: Continue with IV pitocin per order monitoring per order Epidural in place Frequent position changes in bed only Limit SVE unless necessary Intrauterine resuscitation PRN Anticipate CNM will consult with Dr. Henderson PRN Plan discussed with: Patient, Spouse Visit Coding OBGYN Date of Service: Sep 20, 2024 Billing Provider: LIANA GONSALES CNM ELEVATOR CONSTRUCTOR HELPER Common Visit Codes: [id number] INP/OBS CARE(MOD) JELENA GARZA MDWF Sep 20, 2024 16:33
[2024-09-20] MEDS: ONDANSETRON HCL 4 MG/2 ML VIAL IV PRN (18:59)
--- NOTE | 2024-09-20 20:38 | LDN2 ---
Labor and Delivery Note Date 09/20/24 Age 24 1 Para 1 NOW AB N/A EDC 09/21/2024 EGA 39.6 weeks Diagnosis IOL GDMA1 then Vaginal Delivery: VTX Vacuum Assisted: No Placenta: Spontaneous Sex: Female Weight pending Apgars 8/9 Nuchal Cord Transected: No Amniotic Fluid: Clear Anesthesia epidural Episiotomy: No Extension: No Repaired with intact EBL QBL: 400 mL Labs Blood Bank 09/19/24 08:18: Blood Type O POSITIVE Complications Cat II EFM tracing; venous cord blood pH: 7.4 Conditions STABLE Musculoskeletal Physician Taylor BELLO Comments/Significant Med Mary At 1952 this 24yo now delivered a viable Female by w/ APGARS 8/9. ANDREA presentation and loose Nuchal x1 with cord reduced before . placed skin to skin on pts chest. Cord clamped and cut after pulsation ceased. Cord blood and cord gases sent. Intact 3-vessel cord placenta delivered spontaneously, Kelly. Pitocin IV bolus started. Placenta sent to pathology. Patient had epidural. Cervix/vagina inspected (intact) and intact perineum/labia. Fundus at U, firm, midline, and light lochia. QBL 400ml. VSS. Count correct x2. Patient to care and baby to couplet care, both stable. Visit Coding OBGYN Date of Service: Sep 20, 2024 Billing Provider: LIANA GONSALES CNM MANAGER BABY Common Visit Codes: [id number] INP/OBS CARE(MOD) MANAGER BABY Procedure Codes: [id number] DEL INCLUDING JELENA GARZA STDDiya BELLOWF Sep 20, 2024 20:38
[2024-09-20] MEDS ORDERED: ACETAMINOPHEN 325 MG TAB PO PRN (21:15)
[2024-09-20] MEDS ORDERED: LACT. RINGERS/OXYTOCIN 20UNITS 500 ML IV ONE ×2 (21:15→21:45)
[2024-09-20] MEDS ORDERED: ONDANSETRON HCL 4 MG/2 ML VIAL IV PRN (21:15)
[2024-09-20] MEDS: IBUPROFEN 600 MG TAB PO PRN (21:33)
[2024-09-20] MEDS ORDERED: DOCU-265 PO (22:17)
[2024-09-20] MEDS ORDERED: IBU600T PO (22:17)
[2024-09-20 23:30] VITALS: BP 102/53; PULSE 105; RESP 16; TEMP 98.9; O2SAT 96
--- NOTE | 2024-09-21 00:46 | DVHPN2 ---
Progress Note Date Seen: Sep 21, 2024 Subjective S: bleeding is less, eating food without issues, denies lightheaded/dizziness, pain well controlled with oral medications, no concerns with urinating, passing flatus, no BM yet, ambulating well, well vital signs VSS; see chart medications Current Medications Medications Dose Ordered Sig/Chana Route Start Time Stop Time Status Last Admin Dose Admin Aiden Pattersonel 1 pad PRN PRN TOP 09/19/24 08:00 09/19/24 21:24 1 PAD Sodium Lauryl Sulfate 240 ml PRN PRN TOP 09/19/24 08:00 09/19/24 21:24 240 ML Benzocaine 1 applic PRN PRN TOP 09/19/24 08:00 09/19/24 21:24 1 APPLIC Ondansetron HCl 4 mg Q4HPRN PRN IV 09/20/24 11:15 09/20/24 18:59 4 MG Ibuprofen 600 mg Q6HP PRN PO 09/20/24 21:15 09/20/24 21:33 600 MG Acetaminophen 650 mg Q4HP PRN PO 09/20/24 21:15 Docusate Sodium 200 mg HS PO 09/20/24 22:00 laboratory and microbiology Laboratory Tests 09/19/24 08:18 Test 09/19/24 08:18 Range/Units Serum Glucose 111 H 74-106 mg/dL Objective O: VSS Chest: heart sounds normal and lung sounds clear bilaterally Abd: soft, non-tender, fundus at U/firm/midline, active bowel sounds, no rebound or guarding Perineum: intact, no erythema/edema noted Ext: Non-tender, No edema, 2+ BLE DTRs Lochia: minimal See lab results Assessment/Plan A: 24yo now PPD#1 s/p Rh+ Rubella Immune P: D/C home this evening Rx sent to pharmacy precautions and preeclampsia warning signs reviewed F/U with [facility] office in 2 weeks Plan discussed with: Patient, Spouse Visit Coding OBGYN Date of Service: Sep 21, 2024 Billing Provider: LIANA GONSALES CNM CUT ORDER HAND Common Visit Codes: [id number] INP/OBS CARE(MOD) LIANA GONSALES CNM Sep 21, 2024 00:46
--- NOTE | 2024-09-21 00:49 | DVHDS2 ---
Obstetrics Discharge Summary Obstetrics Discharge Summary Date of Admission: Sep 19, 2024 Date of Discharge: Sep 21, 2024 Reason For Admission: Induction of Labor (GDMA1) Procedures: NST, Ultrasound Intrapartum Procedures: Spontaneous vaginal deliv Procedures: Hct/date: (09/21/24), Hgb/date: (09/21/24) Operative Complicat: None Discharge Diagnosis: Term -Delivered Discharge Information: Activity (as tolerated, no heavy lifting and nothing in the vagina for 6 weeks), Diet (Routine), Medications (RX sent), Instructions (Routine), Discharge to (Home), Accompanied by (partner), Discarge date (09/21/2024) Visit Coding OBGYN Date of Service: Sep 21, 2024 Billing Provider: LIANA GONSALES CNM SENIOR CONSUMER INSIGHTS CONSULTANT Common Visit Codes: [id number]-UZS/OBS DISCH DAY <30MIN LIANA GONSALES CNM Sep 21, 2024 00:49
[2024-09-21] MEDS: LACT. RINGERS/OXYTOCIN 20UNITS 500 ML IV ONE ×2 (01:29→01:30)
[2024-09-21 03:20] VITALS: BP 110/67; PULSE 75; RESP 16; TEMP 98.3; O2SAT 100
[2024-09-21] MEDS: DOCUSATE SOD 100 MG CAP PO SCH (03:58)
[2024-09-21 07:00] VITALS: BP 104/59; PULSE 74; RESP 16; TEMP 97.7; O2SAT 97
[2024-09-21 09:21] LABS: Basophils # (auto) 0 10 ^3/uL (0-0.2); Basophils % (auto) 0.2 % (0.0-2.0); Eosinophils # (auto) 0.1 10 ^3/uL (0-0.8); Hematocrit 38.4 % (36.0-46.0); Hemoglobin 12.8 g/dL (12.2-16.2); Lymphocytes # (auto) 2.4 10 ^3/uL (0.4-5.4); Lymphocytes % (auto) 16.1 % (10.0-50.0); Mean Corpuscular Hgb Conc. 33.3 g/dL (32.0-36.0); Monocytes # (auto) 0.8 10 ^3/uL (0-1.3); Neutrophils # (auto) 11.7 10 ^3/uL (1.6-8.6); Neutrophils % (auto) 77.7 % (37.0-80.0); Platelet Count (auto) 214 10^3/uL (140-450); Red Blood Cells 4.57 10^6/uL (4.0-5.20); Red Cell Distribution Width 15.2 % (11.8-14.3); White Blood Cell 15.1 10^3/uL (4.4-10.8)
[2024-09-21 10:45] VITALS: BP 97/59; PULSE 88; RESP 16; TEMP 97.9; O2SAT 96
[2024-09-21] MEDS: LACTATED RINGER'S 1,000 ML IV ONE (11:55)
[2024-09-21 15:00] VITALS: BP 110/64; PULSE 94; RESP 18; TEMP 97.9; O2SAT 96
[2024-09-21] MEDS: ROPIVACAINE HCL 0 ML ONE (15:31)
[2024-09-21] MEDS: fentaNYL CITRATE 100 MCG/2 ML VL IV ONE (15:31)
[2024-09-21] MEDS: ePHEDrine SULFATE 50 MG/ML AMP IV ONE (15:33)
[2024-09-21] MEDS: NALOXONE HCL 0.4 MG/ML VIAL IV ONE (15:33)
[2024-09-21] MEDS: LIDOCAINE HCL 2 %PF INJ 10ML AMP IJ ONE (15:33)
[2024-09-21 19:00] VITALS: BP 111/64; PULSE 96; RESP 16; TEMP 98.2; O2SAT 98
[2024-09-21 21:00] VITALS: BP 111/64; PULSE 89; RESP 18; TEMP 98; O2SAT 98
[2024-09-22 11:06] LABS: Treponema Pallidum Ab LC Non Reactive (Non Reactive)
== END 2024-09-21 21:00 | disposition home or self-care (01) | DRG 807 ==
LOC: LDRP 07:32 → UNDOADMIN 07:32 → PREOBSVTOIN 07:34
PROVIDERS: ADMIT Obstetrics & Gynecology; ATTEND Obstetrics & Gynecology
PROC: 10E0XZZ Delivery of Products of Conception, External Approach (ICD-10-PCS; principal; 2024-09-20)
PROC: 3E0R3BZ Introduction of Anesthetic Agent into Spinal Canal, Percutaneous Approach (ICD-10-PCS; 2024-09-20)
PROC: 00HU33Z Insertion of Infusion Device into Spinal Canal, Percutaneous Approach (ICD-10-PCS; 2024-09-21)
DX: O69.81X0 Labor and delivery complicated by cord around neck, without compression, not applicable or unspecified (principal); Z37.0 Single live birth; O75.89 Other specified complications of labor and delivery; O24.420 Gestational diabetes mellitus in childbirth, diet controlled; M41.9 Scoliosis, unspecified; Z3A.39 39 weeks gestation of pregnancy; Z83.3 Family history of diabetes mellitus
CPT/HCPCS: 36415; 59025; 59200; 59409; 62282; 76805; 80053; 80307; 81001; 82948; 82962; 85025; 85610; 85730; 86592; 86780; 86803; 86850; 86900; 86901; 87086; 94760; 94762; 96360; 96361; 96365; 96366; 96374; G0378; J2405; J2590